=== PATIENT | female | born 1950 | race Caucasian/White ===

== ENCOUNTER 2017-10-01 08:14 | Day surgery (SDC) | payer OTHER ==
[2017-10-01] MEDS ORDERED: MIDAZOLAM 1 MG/ML 2 ML INJ (10:16)
[2017-10-01] MEDS ORDERED: FENTAnyl 50 MCG/ML VIAL (10:16)
== END 2017-10-01 11:27 | disposition home or self-care (01) ==
LOC: GIL 08:14
DX: Z12.11 Encounter for screening for malignant neoplasm of colon (principal); K29.30 Chronic superficial gastritis without bleeding; D12.5 Benign neoplasm of sigmoid colon; D12.0 Benign neoplasm of cecum; K21.9 Gastro-esophageal reflux disease without esophagitis; K64.8 Other hemorrhoids
CPT/HCPCS: 43239; 88305; 88312